=== PATIENT | female | born 1960 | race American Indian/Alaskan Native ===

== ENCOUNTER 2018-09-13 12:37 | Emergency (ER) | payer OTHER ==
[2018-09-13] MEDS ORDERED: NACL 0.9% 1000 ML 1,000 ML IV ONE (12:57)
[2018-09-13] MEDS ORDERED: ZOFRAN IV ONE (13:23)
--- NOTE | 2018-09-13 13:23 | Emergency Department Report ---
ED General Adult HPI - General Chief complaint: Nausea/Vomiting/Diarrhea Stated complaint: VOMITING/DIARRHEA Time Seen by Provider: 09/13/18 13:15 Source: patient, RN notes reviewed Mode of arrival: Ambulatory Limitations: No Limitations - History of Present Illness Initial comments: This is a 58-year-old female who was not known to this provider previously, reports a history of hysterectomy and hypertension. Presents to the emergency room with the complaint of painless nausea, vomiting, diarrhea. Symptoms started yesterday. Emesis is clear, nonbloody, nonbilious, and also "what I eat." There is no abdominal pain. She describes loose watery diarrhea, brown in color. Describes 7 episodes of emesis in the past 24 hours, 3-4 episodes of diarrhea, and the past 24 hours. Admits to mild frontal sinus headache, not sudden or thunderclap in nature, not maximal in intensity, not the worse headache of her life, and dry cough for a few weeks. She denies chest pain, abdominal pain, hematemesis, bright red blood per rectum, and also denies irri tative, obstructive urinary symptoms. -: Gradual Quality: other Consistency: other Improves with: other Worsens with: other Associated Symptoms: cough, headaches, loss of appetite, malaise, nausea/vomiting. denies: confusion, chest pain, diaphoresis, fever/chills, rash, seizure, shortness of breath, syncope, weakness - Related Data Previous Rx's Medication Instructions Recorded Last Taken Type Albuterol Sulfate [Proair 90 mcg IH Q4HR PRN #2 aer.pow.ba 09/13/18 Unknown Rx Respiclick] Benzonatate [Tessalon Perles] 100 mg PO Q8HR PRN #30 capsule 09/13/18 Unknown Rx Ondansetron [Zofran Odt] 4 mg PO Q8HR PRN #20 tab.rapdis 09/13/18 Unknown Rx Allergies Allergy/AdvReac Type Severity Reaction Status Date / Time shellfish derived Allergy Swelling Unverified 11/29/15 10:44 Sulfa (Sulfonamide Allergy Swelling Unverified 11/29/15 10:43 Antibiotics) ED Review of Systems ROS: Stated complaint: VOMITING/DIARRHEA Other details as noted in HPI Constitutional: malaise. denies: fever Eyes: denies: vision change ENT: denies: epistaxis Respiratory: cough Cardiovascular: denies: chest pain, palpitations Gastrointestinal: nausea, vomiting, diarrhea Genitourinary: denies: dysuria Musculoskeletal: denies: back pain, arthralgia, myalgia Skin: denies: lesions Neurological: headache, weakness Psychiatric: denies: depression ED Past Medical Hx - Medications Home Medications: Home Medications Medication Instructions Recorded Confirmed Last Taken Type Albuterol Sulfate [Proair 90 mcg IH Q4HR PRN #2 aer.pow.ba 09/13/18 Unknown Rx Respiclick] Benzonatate [Tessalon Perles] 100 mg PO Q8HR PRN #30 capsule 09/13/18 Unknown Rx Ondansetron [Zofran Odt] 4 mg PO Q8HR PRN #20 tab.rapdis 09/13/18 Unknown Rx ED Physical Exam - General Limitations: No Limitations General appearance: alert, in no apparent distress - Head Head exam: Present: atraumatic, normocephalic - Eye Eye exam: Present: normal appearance, PERRL, EOMI, other (visual acuity intact to finger counting, color perception, reading at a close distance). Absent: nystagmus - ENT ENT exam: Present: normal exam, normal orophraynx, mucous membranes moist, normal external ear exam - Neck Neck exam: Present: normal inspection, full ROM. Absent: tenderness, meningismus - Respiratory Respiratory exam: Present: normal lung sounds bilaterally. Absent: respiratory distress - Cardiovascular Cardiovascular Exam: Present: regular rate, normal rhythm, normal heart sounds. Absent: bradycardia, tachycardia, irregular rhythm, systolic murmur, diastolic murmur, rubs, gallop - GI/Abdominal GI/Abdominal exam: Present: soft. Absent: distended, tenderness, guarding, rebound, rigid, pulsatile mass - Extremities Exam Extremities exam: Present: normal inspection, full ROM, other (2+ pulses noted in the bilateral upper, lower extremities. Compartments soft. No long bony tenderness. The pelvis is stable.). Absent: pedal edema, joint swelling, calf tenderness - Back Exam Back exam: Present: normal inspection, full ROM. Absent: tenderness, CVA tenderness (R), paraspinal tenderness, vertebral tenderness - Neurological Exam Neurological exam: Present: alert, oriented X3, CN II-XII intact, normal gait (there is no pronator drift. There is no past-pointing. There is normal [id number]. There is normal gait.), other (Extraocular movements intact. Tongue midline. No facial droop. Facial sensation intact to light touch in the V1, V2, V3 distribution bilaterally. 5 and 5 strength in 4 extremities.. Sensation is intact to light touch in 4 extremities.). Absent: motor sensory deficit - Psychiatric Psychiatric exam: Present: anxious - Skin Skin exam: Present: warm, dry, intact, normal color. Absent: rash ED Course Vital Signs 09/13/18 09/13/18 09/13/18 12:40 13:20 13:30 Temperature 98.1 F Pulse Rate 96 H 88 Respiratory 18 17 19 Rate Blood Pressure 138/79 Blood Pressure 147/89 [Left] O2 Sat by Pulse 98 96 Oximetry 09/13/18 09/13/18 09/13/18 13:45 14:00 14:13 Temperature Pulse Rate 85 85 Respiratory 15 14 Rate Blood Pressure 132/83 132/83 Blood Pressure [Left] O2 Sat by Pulse 98 100 98 Oximetry 09/13/18 14:16 Temperature Pulse Rate 92 H Respiratory 18 Rate Blood Pressure 132/83 Blood Pressure [Left] O2 Sat by Pulse 100 Oximetry - Reevaluation(s) Reevaluation #1: 09/13/18 13:44 Differential diagnosis, including not limited to: Enteritis, viral syndrome, dehydration, electrolyte derangement Assessment and plan: 58-year-old female with painless nausea, vomiting, diarrhea. The patient is afebrile, with reassuring vital signs, and walks with steady gait. He endorses cough for a few weeks, saturating well, no focal pulmonary findings, doubt acute intrathoracic pathology. Has a Rosendo Coma Scale of 15, with an NIH score of 0, with a normal neurologic examination, and does not require emergent neuroimaging at this point in time. Her main complaint is nausea, vomiting, diarrhea. No active vomiting thus far in the emergency room. She will be given antiemetic medication, IV fluids, screening laboratory studies EKG, chest x-ray will be obtained. We'll reassess after initial data points. Reevaluation #2: 09/13/18 14:28 No active vomiting. tolerating liquid feeds. Laboratory studies unremarkable. Endorses subjective improvement. We will discharge patient. Return precautions reviewed. Abdomen soft on repeat examination. ED Medical Decision Making - Lab Data Result diagrams: 09/13/18 13:35 09/13/18 13:35 Vital Signs 09/13/18 12:40 Temperature 98.1 F Pulse Rate 96 H Respiratory 18 Rate Blood Pressure 147/89 [Left] O2 Sat by Pulse 98 Oximetry - EKG Data -: EKG Interpreted by Me EKG shows normal: sinus rhythm Rate: normal - EKG Data When compared to previous EKG there are: previous EKG unavailable 09/13/18 14:25 Sinus, 94 bpm, normal axis, normal intervals, atrial enlargement, motion artifact, not consistent with ST elevation myocardial infarction. - Radiology Data Radiology results: report reviewed, image reviewed X-ray of the chest is negative for acute disease. Critical care attestation.: If time is entered above; I have spent that time in minutes in the direct care of this critically ill patient, excluding procedure time. ED Disposition Clinical Impression: History of nausea and vomiting, Bronchitis Disposition: - TO HOME OR SELFCARE Is pt being admited?: No Does the pt Need Aspirin: No Condition: Stable Instructions: Acute Nausea and Vomiting (ED), Chronic Bronchitis (ED) Additional Instructions: Take medications as needed/directed. Advance diet as tolerated. Drink plenty of fluids. Wash hands before and after eating food, and after vomiting, defecating, having diarrhea. Symptoms will likely last 3-6 days as far as nausea, vomiting, diarrhea goes. Make certain to drink plenty of fluids, and advance diet as tolerated. Cough likely coming from bronchitis and/or chest cold, typically does not require antibiotics, and may be expected to last 3-6 weeks. No antibiotics typically unnecessary for this. It will typically go away on its own. If the cough medicine, breathing medication as needed/dire cted. Follow up with the primary care doctor within the next 7-10 days. Return to the emergency room right away with new, worsening, different symptoms. Prescriptions: Albuterol Sulfate [Proair Respiclick] 90 mcg IH Q4HR PRN #2 aer.pow.ba PRN Reason: Wheezing Benzonatate [Tessalon Perles] 100 mg PO Q8HR PRN #30 capsule PRN Reason: Cough Ondansetron [Zofran Odt] 4 mg PO Q8HR PRN #20 tab.rapdis PRN Reason: Nausea Referrals: GRETTA LYNN MD [Primary Care Provider] - 7-10 days Forms: Work/School Release Form(ED)
[2018-09-13 13:53] LABS: Hematocrit 36.8 % (30.3-42.9); Hemoglobin 12.3 gm/dl (10.1-14.3); Mean Corpuscular HGB Conc 34 % (30-34); Mean Corpuscular Volume 87 fl (79-97); Platelet Count 428 K/mm3 (140-440); Red Blood Count 4.24 M/mm3 (3.65-5.03); Red Cell Distribution Width 14.3 % (13.2-15.2)
--- NOTE | 2018-09-13 14:02 | XRay Report ---
FINAL REPORT PROCEDURE: XR CHEST 1V AP TECHNIQUE: Chest radiograph anteroposterior view. CPT 12829 HISTORY: cough COMPARISON: No prior studies are available for comparison. FINDINGS: Heart: Normal. Mediastinum/Vessels: Normal. Lungs/Pleural space: No infiltrate, effusion, or pneumothorax. Bony thorax: No acute osseous abnormality. Life support devices: None. IMPRESSION: No radiographic evidence of acute cardiopulmonary abnormality.
[2018-09-13 14:23] LABS: Alanine Aminotransferase 26 units/L (7-56); Albumin 4.7 g/dL (3.9-5); BUN/Creatinine Ratio 26; Blood Urea Nitrogen 21 mg/dL (7-17); Calcium 9.6 mg/dL (8.4-10.2); Hemolysis Index 10
[2018-09-13 16:17] VITALS: BP 132/82
== END 2018-09-13 16:15 | disposition home or self-care (01) ==
LOC: ED 12:37
DX: J40 Bronchitis, not specified as acute or chronic (principal); I10 Essential (primary) hypertension; Z90.710 Acquired absence of both cervix and uterus; Z88.2 Allergy status to sulfonamides; Z91.013 Allergy to seafood
CPT/HCPCS: 36415; 71045; 80053; 83735; 85027; 93005; 93010; 96361; 96374; 99284; J2405; J7030